=== PATIENT | female | born 1995 | race Caucasian/White ===

== ENCOUNTER 2021-11-24 17:22 | Emergency (ER) | payer OTHER ==
[2021-11-24 18:14] LABS: BASOPHIL 0.7 % (0-2); EOSINOPHIL 2.8 % (0-5); HGB 13.5 g/dl (12.5-16.0); LYMPHOCYTE 29.4 % (15-48); MCH 30.3 pg (25.0-31.0); MCHC 33.8 g/dL (32.0-36.0); MCV 89.9 fL (78.0-100.0); MONOCYTE 9.2 % (0-12); MPV 10.7 fL (6.0-9.5); NEUTROPHIL 57.6 % (41-80); NRBC 0; PLT 225 K/uL (150-400); RBC 4.45 M/uL (4.20-5.40); RDW 12.3 % (11.5-14.0); WBC 6.1 K/uL (4.0-10.5)
[2021-11-24 18:20] LABS: BILIRUBIN NEGATIVE (NEGATIVE); BLOOD NEGATIVE Ery/uL (NEGATIVE); CLARITY CLEAR (CLEAR); GLUCOSE (U) NORMAL (NORMAL); LEUKOCYTES NEGATIVE Leu/uL (NEGATIVE); NITRITE NEGATIVE (NEGATIVE); PROTEIN NEGATIVE (NEGATIVE); SPECIFIC GRAVITY <=1.005 (1.001-1.030); UROBILINOGEN 0.2 mg/dL (0.2-1.0)
[2021-11-24 18:22] LABS: COLOR STRAW (YELLOW)
[2021-11-24 18:32] LABS: CREATININE 0.84 mg/dL (0.51-0.95); POTASSIUM 4.4 mmol/L (3.5-5.1)
[2021-11-24 19:12] LABS: LACTIC ACID 0.5 mmol/L (0.4-1.9)
== END 2021-11-24 20:05 | disposition home or self-care (01) ==
LOC: FER 17:22
PROVIDERS: Emergency Medicine
DX: R55 Syncope and collapse (principal); Z88.0 Allergy status to penicillin; Z88.1 Allergy status to other antibiotic agents; Z88.2 Allergy status to sulfonamides
CPT/HCPCS: 36415; 80048; 81003; 83605; 84145; 85025; 99284; J7030